=== PATIENT | male | born 1935 | race Caucasian/White ===

== ENCOUNTER 2017-08-17 15:05 | Emergency (ER) | payer MEDICARE, BC ==
[2017-08-17 16:56] LABS: APPEARANCE,URINE Clear; BILIRUBIN,URINE NEGATIVE (NEGATIVE); COLOR,URINE Yellow; GLUCOSE, URINE (UA) NEGATIVE (NEGATIVE); KETONES,URINE NEGATIVE (NEGATIVE); LEUKOCYTE ESTERASE ,URINE TRACE (NEGATIVE); NITRATE,URINE NEGATIVE (NEGATIVE); OCCULT BLOOD,URINE TRACE INTACT (NEG-TRACE); UROBILINOGEN,URINE 0.2 (0.2-1.0 EU)
[2017-08-17 17:11] VITALS: BP 136/90; PULSE 66; RESP 16; TEMP 97.9; O2SAT 99
== END 2017-08-17 17:37 | disposition home or self-care (01) | DRG 726 ==
LOC: ED 15:05
DX: N40.1 Benign prostatic hyperplasia with lower urinary tract symptoms (principal); R33.8 Other retention of urine
CPT/HCPCS: 81001; 87088; 99282

== ENCOUNTER 2018-06-23 06:03 | Emergency (ER) | payer OTHER, MEDICARE, BC ==
[2018-06-23 09:29] VITALS: RESP 20
[2018-06-23] MEDS ORDERED: HYDROMORPHONE 1 MG/ML SYRINGE IV ONE (09:48)
[2018-06-23 09:52] LABS: BASOPHILS % (AUTO) 0 % (0-3); EOSINOPHILS % (AUTO) 0 % (0-9); HEMATOCRIT 37 % (39-53); HEMOGLOBIN 12.2 gm/dl (13.5-17.7); LYMPHOCYTES % (AUTO) 8.2 % (10-50); MEAN CORPUSCULAR HEMOGLOBIN 33.8 pg (27.0-32.0); MEAN CORPUSCULAR HGB CONC 32.9 gm/dl (32.0-36.0); MONOCYTES % (AUTO) 6.8 % (0-12); NEUTROPHILS % (AUTO) 84.3 % (37-80)
[2018-06-23 09:55] LABS: MEAN CORPUSCULAR VOLUME 103 fL (80-100)
[2018-06-23 09:56] VITALS: PULSE 83
[2018-06-23 09:56] LABS: CALCIUM 8.5 mg/dl (8.5-10.1); CARBON DIOXIDE 28.2 mEq/L (21-32); CREATININE 0.68 mg/dl (0.80-1.30); POTASSIUM 3.9 mMol/L (3.5-5.1)
[2018-06-23] MEDS ORDERED: SODIUM CHLORIDE 0.9% 1000ML 1,000 ML IV ONE (09:58)
[2018-06-23] MEDS ORDERED: HYDROMORPHONE 1 MG/ML SYRINGE ONE (10:12)
[2018-06-23 10:42] VITALS: TEMP 97.7; O2SAT 95
[2018-06-23 12:15] VITALS: BP 105/65
== END 2018-06-23 11:05 | disposition short-term general hospital (02) | DRG 536 ==
LOC: ED 06:03
DX: S32.9XXA Fracture of unspecified parts of lumbosacral spine and pelvis, initial encounter for closed fracture (principal); S22.41XA Multiple fractures of ribs, right side, initial encounter for closed fracture; W10.9XXA Fall (on) (from) unspecified stairs and steps, initial encounter; Y92.22 Religious institution as the place of occurrence of the external cause
CPT/HCPCS: 36415; 71045; 74176; 80048; 85025; 96365; 96374; 99284; 99285; J1170